=== PATIENT | female | born 1950 | race Caucasian/White ===

== ENCOUNTER 2017-11-09 12:27 | Emergency (ER) | payer SELFPAY, OTHER ==
[2017-11-09] MEDS: ACETAMINOPHEN 325 MG TAB PO (13:49)
== END 2017-11-09 16:05 | disposition home or self-care (01) ==
LOC: FTE 12:27
DX: S20.211A Contusion of right front wall of thorax, initial encounter (principal); V49.50XA Passenger injured in collision with unspecified motor vehicles in traffic accident, initial encounter
CPT/HCPCS: 71045; 71100; 72040; 99284-25